=== PATIENT | female | born 1985 | race African-American/Black ===

== ENCOUNTER 2017-05-14 19:33 | Emergency (ER) | payer MEDICAID ==
[~2017-05-14] VITALS: Ht 162.6 cm; Wt 90.0 kg
[~2017-05-14 19:33] MED LIST: ALBU05 NEB
[2017-05-14] MEDS ORDERED: IPRATROPIUM BROMIDE (0.02%) 0.5MG/2.5ML NEB HHN STA (19:45)
[2017-05-14] MEDS ORDERED: ALBUTEROL (0.083%) 2.5MG/3ML NEB HHN STA (19:45)
[2017-05-14] MEDS ORDERED: ONDANSETRON HCL 4MG/2ML VIAL IV STA (19:45)
[2017-05-14] MEDS ORDERED: AZITHROMYCIN 500 MG in DEXT 5% WATER 250 ML IV ONE (19:45)
[2017-05-14] MEDS ORDERED: NITROGLYCERIN OINT 1GM/INCH UDPKT TD ONE (19:45)
[2017-05-14] MEDS ORDERED: ASPIRIN 81MG TABLET PO ONE (19:45)
[2017-05-14] MEDS ORDERED: MORPHINE SULFATE 4 MG/ML CPJ (NOT FOR IM USE) IV STA (19:45)
[2017-05-14] MEDS ORDERED: MAGNESIUM 2 G PREMIX 50 ML IV ONE (19:45)
[2017-05-14] MEDS ORDERED: CEFTRIAXONE 1 G PREMIX 50 ML IV ONE (19:45)
[2017-05-14] MEDS ORDERED: METHYLPREDNISOLONE SOD SUCC 125 MG/2 ML VIAL IV STA (19:45)
[2017-05-14 20:24] LABS: HCG SCREEN NEGATIVE
[2017-05-14 20:26] LABS: BASOPHILS % 0.8 % (0.0-2.0); CARBON DIOXIDE 26 mEq/L (21-32); CHLORIDE 107 mEq/L (98-107); EOSINOPHILS % 7.9 % (0.0-5.0); ETHANOL BLOOD < 10 mg/dL; HEMATOCRIT. 38.6 % (36.0-48.0); HEMOGLOBIN. 12.9 g/dL (12.0-16.0); LYMPHOCYTES % 51.6 % (20.0-50.0); MEAN CORPUSCULAR HEMOGLOBIN 28.6 pg (28.0-32.0); MEAN CORPUSCULAR VOLUME 85.3 fL (81.0-99.0); MEAN PLATELET VOLUME 6.7 fl (7.4-10.4); MONOCYTES % 6.5 % (2.0-8.0); NEUTROPHILS % 33.2 % (40.0-76.0); PLATELET 462 x1000/uL (130-400); RED BLOOD CELL COUNT 4.52 mill/uL (4.2-5.4); RED CELL DISTRIBUTION WIDTH 15.8 % (11.6-14.6)
[2017-05-14 20:33] LABS: D-DIMER < 0.19 mg/L FEU (<0.50); PROTHROMBIN TIME 10.3 sec; TROPONIN I < 0.02 ng/mL (0.00-0.04)
[2017-05-14 20:47] LABS: BG BASE EXCESS -2.9 mmol/L (-2.0-2.0); BG CARBOXYHEMOGLOBIN 0.8 % (0.5-1.5); BG DEOXYHEMOGLOBIN 4.4 % (0.0-5.0); BG FRACTION INSPIRED OXYGEN 28; BG HCO3 ACT 22.4 mmol/L (22.0-26.0); BG METHEMOGLOBIN 0.4 % (0.0-1.5); BG OXYGEN SATURATION 95.5 % (92.0-98.5); BG OXYHEMOGLOBIN 94.4 % (94.0-97.0); BG PCO2 40.9 mmHg (35.0-45.0); BG PH 7.357 (7.350-7.450); BG PO2 85.6 mmHg (75.0-100.0); BG SAMPLE SITE RIGHT RADIAL; BG TOTAL HEMOGLOBIN 13.5 g/dL (12.0-18.0); BG VENT MODE NASAL CANNULA
[2017-05-14] MEDS ORDERED: AZITHROMYCIN 250 MG TABLET PO ONE (22:45)
[2017-05-14] MEDS ORDERED: IPRATROPIUM/ALBUTEROL 0.5-3(2.5)MG/3ML NEB HHN ONE (23:00)
[2017-05-15 01:15] VITALS: BP 130/76
== END 2017-05-15 01:27 | disposition home or self-care (01) ==
LOC: ER 19:51
DX: J45.901 Unspecified asthma with (acute) exacerbation (principal); Z88.8 Allergy status to other drugs, medicaments and biological substances
CPT/HCPCS: 36415; 36600; 71010; 80053; 82375; 82805; 83605; 83690; 83880; 84484; 84703; 85025; 85379; 85610; 87040; 93005; 94640; 96365; 96366; 96368; 96375; 99285; G0482; J0456; J0696; J2270; J2405; J2930; J3475; J7611; Z7610; J7060; J7620

== ENCOUNTER 2024-08-15 21:36 | Emergency (ER) | payer MEDICAID ==
[~2024-08-15] VITALS: Ht 170.2 cm; Wt 102.0 kg
[2024-08-15 21:47] VITALS: O2SAT 100
[2024-08-15] MEDS: KETOROLAC 30MG/ML VIAL IM STA (23:41)
[2024-08-15 23:47] VITALS: BP 129/79; PULSE 91; RESP 18; TEMP 36.89184; O2SAT 100
[2024-08-16 00:22] LABS: CLARITY URINE CLOUDY (CLEAR); COLOR URINE YELLOW (YELLOW); GLUCOSE URINE NEGATIVE (NEGATIVE); KETONES URINE 1+ (NEGATIVE); LEUKOCYTE ESTERASE URINE NEGATIVE (NEGATIVE); NITRITE URINE NEGATIVE (NEGATIVE); OCCULT BLOOD URINE NEGATIVE (NEGATIVE); PH URINE 6.5 (4.5-8.0); PROTEIN URINE NEGATIVE (NEGATIVE); SPECIFIC GRAVITY URINE 1.029 (1.005-1.030); UROBILINOGEN URINE 0.2 E.U./dL (0.2-1.0)
[2024-08-16 01:11] LABS: BACTERIA URINE TRACE; RBC URINE NONE SEEN /hpf (0-2); SQUAMOUS EPITHELIAL CELL URINE FEW /lpf (RARE/1+); WBC URINE NONE SEEN /hpf (0-2)
== END 2024-08-15 23:52 | disposition home or self-care (01) ==
LOC: ER 21:36
DX: S80.02XA Contusion of left knee, initial encounter (principal); J45.909 Unspecified asthma, uncomplicated; F41.9 Anxiety disorder, unspecified; X58.XXXA Exposure to other specified factors, initial encounter; Y93.89 Activity, other specified; Y92.89 Other specified places as the place of occurrence of the external cause; Y99.8 Other external cause status
CPT/HCPCS: 99284; 81003; 73562; 96372; J1885